=== PATIENT | male | born 1930 | race Caucasian/White ===

== ENCOUNTER → 2017-07-13 | Outpatient (CLI) | payer MEDICARE ==
[~2017-07-13] MED LIST: ASA PO; BENTYL 10 MG CA10 M1 PO; BENTYL 10 MG CA10 MG PO; CIALIS5 MG PO; COREG6.25 MG PO; DULCOLAX STOOL100 MG PO; ELIQUIS2.5 MG PO; HYDROCODONE-AP1 EAC6 PO; LEVITRA10 MG PO; LISINOPRIL2.5 MG PO; METAMUCIL0.52 GM PO; METAMUCIL1 EAC1; NORCO 5-325 TA1 EACH PO; OMEPRAZOLE 20 M20 M1 PO; PRENATAL PO; SIMVASTATIN20 MG PO; SORINE 80 MG TA80 M1 PO; TUMS PO; VALIUM5 MG PO; ZOCOR20 MG PO; ZOLOFT50 MG PO
[2017-07-13 10:59] LABS: ABSOLUTE EOSINOPHILS 0.2 thou/uL (0.0-0.7); ABSOLUTE LYMPHOCYTES 1.3 thou/uL (0.8-5.3); ABSOLUTE MONOCYTES 0.7 thou/uL (0.0-1.2); ABSOLUTE NEUTROPHILS 3.4 thou/uL (1.6-8.1); BASOPHILS 0.7 %; EOSINOPHILS 3.7 %; HEMOGLOBIN 12.7 gm/dL (14.0-18.0); LYMPHOCYTES 22.6 %; MCH 32.4 pg (26.0-34.0); MCHC 33.4 g/dL (28.0-37.0); MCV 96.8 fL (80.0-100.0); MONOCYTES 12.3 %; MPV 7.6 fl. (7.2-11.1); NUCLEATED RBCS 0 /100WBC; PLATELET COUNT* 204 thou/uL (150-400); POLYS 60.7 %; RBC 3.93 mil/uL (4.50-6.00); RDW-CV 13.5 % (10.5-14.5); WBC 5.6 thou/uL (4.0-11.0)
[2017-07-13 11:14] LABS: ALBUMIN 3.7 g/dL (3.4-5.0); CALCIUM 8.6 mg/dL (8.5-10.1); POTASSIUM 3.9 mmol/L (3.5-5.1); TOTAL BILIRUBIN 0.5 mg/dL (<0.1-1.0); TOTAL PROTEIN 7.4 g/dL (6.4-8.2)
== END ==
LOC: M.LAB 10:42
PROVIDERS: Nurse Practitioner
DX: I10 Essential (primary) hypertension (principal); I25.10 Atherosclerotic heart disease of native coronary artery without angina pectoris; R42 Dizziness and giddiness